=== PATIENT | female | born 1980 | race American Indian/Alaskan Native ===

== ENCOUNTER 2023-10-21 23:36 | Emergency (ER) | payer MEDICAID ==
[~2023-10-21] VITALS: Ht 160 cm; Wt 108.4 kg
[~2023-10-21 23:36] MED LIST: ACET-2119 PO; DIVA125T9 PO; GABA-338 PO
[2023-10-21 23:52] VITALS: BP 257/169; PULSE 106; RESP 20; TEMP 98.7; O2SAT 96
[2023-10-22 00:33] LABS: BASOPHILS % (AUTO) 0.4 % (0-1); EOSINOPHILS # (AUTO) 0.1 X10'3 (0-0.9); EOSINOPHILS % (AUTO) 0.9 % (0-6); HEMATOCRIT 47.6 % (35.0-45.0); HEMOGLOBIN 15.5 g/dl (12.0-16.0); LYMPHOCYTES # (AUTO) 2.6 X10'3 (1.1-4.8); LYMPHOCYTES % (AUTO) 29.6 % (21-51); MEAN CORPUSCULAR HEMOGLOBIN 30.2 PG (27.0-31.0); MEAN CORPUSCULAR HGB CONC 32.5 g/dL (33.0-36.5); MEAN CORPUSCULAR VOLUME 92.9 FL (78-98); MEAN PLATELET VOLUME 8.3 FL (7.4-10.4); MONOCYTES # (AUTO) 0.5 X10'3 (0-0.9); MONOCYTES % (AUTO) 6.1 % (2-12); NEUTROPHILS # (AUTO) 5.6 X10'3 (1.8-7.7); PLATELET COUNT 184 X10'3 (140-440); RED BLOOD COUNT 5.12 X10'6 (4.20-5.60); RED CELL DISTRIBUTION WIDTH 17.8 % (11.5-14.5); WHITE BLOOD COUNT 8.8 X10'3 (4.5-11.0)
[2023-10-22 00:41] LABS: ALANINE AMINOTRANSFERASE 61 U/L (12-78); ALBUMIN 3.1 G/DL (3.4-5.0); ALBUMIN/GLOBULIN RATIO 0.7 (1.1-1.5); ALKALINE PHOSPHATASE 351 IU/L (46-116); ANION GAP 9 (8-16); ASPARTATE AMINO TRANSFERASE 53 U/L (10-37); BLOOD UREA NITROGEN 22 MG/DL (7-18); BUN/CREATININE RATIO 18.8 (10.0-20.0); CALCIUM 9.2 MG/DL (8.5-10.1); CHLORIDE 104 MMOL/L (99-107); CREATININE 1.17 MG/DL (0.40-0.90); GLUCOSE 120 MG/DL (70-104); SODIUM 140 MMOL/L (135-145); TOTAL CARBON DIOXIDE 27.1 MMOL/L (24-32); TOTAL PROTEIN 7.5 G/DL (6.4-8.2); eCRCL 53 ML/MIN; eGFR 51 ML/MIN
[2023-10-22 00:49] LABS: PRO BRAIN NATRIURETIC PEPTIDE 1965 PG/ML (0-125)
[2023-10-22] MEDS ORDERED: potassium Cl 20 mEq SR tablet PO STA (01:47)
[2023-10-22] MEDS ORDERED: potassium CL 10mEq/100ml bag 100 ML IV SCH (01:50)
== END 2023-10-22 09:20 | disposition left against medical advice (07) ==
LOC: ER 23:36
DX: R06.02 Shortness of breath (principal); R60.0 Localized edema; Z53.21 Procedure and treatment not carried out due to patient leaving prior to being seen by health care provider
CPT/HCPCS: 36415; 71045; 80053; 83880; 84484; 85025; 93005; 99281

== ENCOUNTER 2023-10-22 22:48 | Inpatient (IN) | payer MEDICAID ==
[~2023-10-22] VITALS: Ht 160 cm; Wt 108.8 kg
[2023-10-22 23:20] LABS: HEMOGLOBIN 15.2 g/dl (12.0-16.0); PLATELET COUNT 169 X10'3 (140-440)
[2023-10-22 23:22] LABS: BASOPHILS % (AUTO) 0.5 % (0-1); EOSINOPHILS # (AUTO) 0.1 X10'3 (0-0.9); EOSINOPHILS % (AUTO) 0.7 % (0-6); HEMATOCRIT 45.7 % (35.0-45.0); LYMPHOCYTES # (AUTO) 2.2 X10'3 (1.1-4.8); MEAN CORPUSCULAR HEMOGLOBIN 30.5 PG (27.0-31.0); MEAN CORPUSCULAR HGB CONC 33.2 g/dL (33.0-36.5); MEAN PLATELET VOLUME 7.8 FL (7.4-10.4); MONOCYTES # (AUTO) 0.5 X10'3 (0-0.9); MONOCYTES % (AUTO) 6.4 % (2-12); NEUTROPHILS # (AUTO) 5.4 X10'3 (1.8-7.7); NEUTROPHILS % (AUTO) 65.4 % (42-75); RED BLOOD COUNT 4.97 X10'6 (4.20-5.60); RED CELL DISTRIBUTION WIDTH 17.8 % (11.5-14.5); WHITE BLOOD COUNT 8.2 X10'3 (4.5-11.0)
[2023-10-22 23:51] LABS: ALANINE AMINOTRANSFERASE 51 U/L (12-78); ALBUMIN 2.9 G/DL (3.4-5.0); ALBUMIN/GLOBULIN RATIO 0.7 (1.1-1.5); ALKALINE PHOSPHATASE 295 IU/L (46-116); ANION GAP 11 (8-16); ASPARTATE AMINO TRANSFERASE 49 U/L (10-37); BILIRUBIN,TOTAL 1.3 MG/DL (0.1-1.0); BLOOD UREA NITROGEN 20 MG/DL (7-18); BUN/CREATININE RATIO 20.2 (10.0-20.0); CALCIUM 8.7 MG/DL (8.5-10.1); CHLORIDE 105 MMOL/L (99-107); CREATININE 0.99 MG/DL (0.40-0.90); GLUCOSE 119 MG/DL (70-104); POTASSIUM 3.2 MMOL/L (3.5-5.1); SODIUM 141 MMOL/L (135-145); TOTAL CARBON DIOXIDE 25.4 MMOL/L (24-32); TOTAL PROTEIN 7.1 G/DL (6.4-8.2); eCRCL 62 ML/MIN; eGFR 62 ML/MIN
[2023-10-22] MEDS ORDERED: potassium Cl 20 mEq SR tablet PO STA (23:53)
[2023-10-22] MEDS ORDERED: furosemide 10 MG/1 ML 10ml inj IV ONE (23:55)
[2023-10-23 00:02] LABS: PRO BRAIN NATRIURETIC PEPTIDE 1598 PG/ML (0-125)
[2023-10-23] MEDS ORDERED: nitroGLYCERIN 1gm ointment UD TP ONE (00:15)
[2023-10-23] MEDS ORDERED: HYDROcodone/acetaminophen 5mg/325mg tablet PO PRN (00:20)
[2023-10-23] MEDS ORDERED: mag hydrox/Alum hydrox/simeth 30ml oral suspension PO PRN (00:20)
[2023-10-23] MEDS ORDERED: magnesium 4gm in 100ml NS 100 ML IV PRN (00:20)
[2023-10-23] MEDS ORDERED: potassium Cl 20 mEq SR tablet PO PRN ×2 (00:20)
[2023-10-23] MEDS ORDERED: potassium Cl 40MEQ/1/2NS 520ml 520 ML IV PRN (00:20)
[2023-10-23] MEDS ORDERED: magnesium hydroxide 30ml (MOM) UD suspension PO PRN (00:20)
[2023-10-23] MEDS ORDERED: ondansetron/PF 4mg/2ml inj IV PRN (00:20)
[2023-10-23] MEDS ORDERED: morphine 2 MG/ML inj. syringe IV PRN ×2 (00:20)
[2023-10-23] MEDS ORDERED: magnesium Cl slow-release 64mg tablet PO PRN (00:20)
[2023-10-23] MEDS ORDERED: magnesium 2GM in 50ml NS 50 ML IV PRN (00:20)
[2023-10-23] MEDS ORDERED: acetaminophen 325mg tablet PO PRN ×2 (00:20)
[2023-10-23] MEDS: sacubitril/valsartan 24mg-26mg tablet PO SCH ×3 (00:25→20:00)
[2023-10-23 01:40] LABS: URINE HCG NEGATIVE (NEG)
[2023-10-23 01:45] LABS: BILIRUBIN,URINE NEGATIVE (Neg); CLARITY,URINE CLEAR (Clear); COLOR,URINE YELLOW (Yellow); GLUCOSE, URINE NEGATIVE (Neg); KETONES,URINE NEGATIVE (Neg); LEUKOCYTE ESTERASE ,URINE NEGATIVE (Neg); NITRITES, URINE NEGATIVE (Neg); OCCULT BLOOD,URINE TRACE-INTACT (Neg); PH,URINE 6.5 (4.8-8.0); PROTEIN,URINE 100 mg/dl (Neg)
[2023-10-23 01:50] LABS: UA COLLECTION TYPE FOLEY CATH
[2023-10-23 01:56] LABS: MUCUS STRANDS MODERATE /LPF (Neg); SQUAMOUS EPITHELIAL CELL,UR FEW /LPF (FEW)
[2023-10-23 01:58] LABS: BACTERIA,URINE 1+ /HPF (Neg); HYALINE CASTS 0-3 /LPF (NEGATIVE); RBC,URINE 0-2 /HPF (0-2)
[2023-10-23] MEDS: furosemide inj 100 MG in normal saline 100ml IV soln 90 ML IV SCH ×2 (02:02→11:14)
[2023-10-23 03:20] LABS: MAGNESIUM 1.9 MG/DL (1.5-2.4); POTASSIUM 3.3 MMOL/L (3.5-5.1)
[2023-10-23 03:21] LABS: INR 1.1 INR; PROTHROMBIN TIME 11.5 SECONDS (9.0-12.0)
[2023-10-23] MEDS ORDERED: docusate sod 100mg capsule PO SCH (08:00)
[2023-10-23] MEDS: K and/or MAG REPLACEMENT MC SCH ×2 (08:00→20:00)
[2023-10-23] MEDS: divalproex sod 125mg tablet.DR PO SCH ×2 (12:34→20:00)
[2023-10-23] MEDS: furosemide 40mg/4ml inj IV SCH ×2 (12:34→21:00)
[2023-10-23] MEDS: gabapentin 300mg capsule PO SCH (16:00)
[2023-10-23 16:56] LABS: POTASSIUM 3.7 MMOL/L (3.5-5.1)
[2023-10-23 18:00] VITALS: BP 154/92; PULSE 103; RESP 21; TEMP 97.5; O2SAT 97
[2023-10-23] MEDS: enoxaparin 40mg/0.4ml syringe SQ SCH (20:00)
[2023-10-23 22:00] VITALS: BP 122/69; PULSE 99; RESP 15; TEMP 97.3; O2SAT 96
[2023-10-23] MEDS: HYDROcodone/acetaminophen 10/325mg tab PO PRN (22:08)
[2023-10-24] MEDS: gabapentin 300mg capsule PO SCH ×3 (00:31→16:15)
[2023-10-24 08:00] VITALS: RESP 17; O2SAT 95
[2023-10-24] MEDS: K and/or MAG REPLACEMENT MC SCH ×2 (08:00→20:00)
[2023-10-24] MEDS: divalproex sod 125mg tablet.DR PO SCH ×2 (08:12→22:08)
[2023-10-24] MEDS: furosemide 40mg/4ml inj IV SCH ×3 (08:12→21:27)
[2023-10-24] MEDS: sacubitril/valsartan 24mg-26mg tablet PO SCH ×2 (08:12→22:07)
[2023-10-24] MEDS: HYDROcodone/acetaminophen 10/325mg tab PO PRN ×2 (08:22→19:00)
[2023-10-24 09:06] LABS: BASOPHILS % (AUTO) 0.4 % (0-1); EOSINOPHILS # (AUTO) 0.2 X10'3 (0-0.9); EOSINOPHILS % (AUTO) 1.7 % (0-6); HEMATOCRIT 48.9 % (35.0-45.0); HEMOGLOBIN 15.3 g/dl (12.0-16.0); LYMPHOCYTES # (AUTO) 3.6 X10'3 (1.1-4.8); LYMPHOCYTES % (AUTO) 36.5 % (21-51); MEAN CORPUSCULAR HEMOGLOBIN 29.9 PG (27.0-31.0); MEAN CORPUSCULAR HGB CONC 31.3 g/dL (33.0-36.5); MEAN CORPUSCULAR VOLUME 95.6 FL (78-98); MEAN PLATELET VOLUME 8.3 FL (7.4-10.4); MONOCYTES % (AUTO) 10.4 % (2-12); NEUTROPHILS # (AUTO) 5.1 X10'3 (1.8-7.7); PLATELET COUNT 178 X10'3 (140-440); RED BLOOD COUNT 5.11 X10'6 (4.20-5.60); RED CELL DISTRIBUTION WIDTH 18.7 % (11.5-14.5)
[2023-10-24 10:13] LABS: ANISOCYTOSIS 2+; PLATELET ESTIMATE NORMAL
[2023-10-24 11:13] VITALS: BP 98/69; PULSE 91; RESP 17; TEMP 97.3; O2SAT 95
[2023-10-24 11:35] LABS: ALBUMIN 2.6 G/DL (3.4-5.0); ANION GAP 6 (8-16); BLOOD UREA NITROGEN 21 MG/DL (7-18); BUN/CREATININE RATIO 21.9 (10.0-20.0); CALCIUM 8.9 MG/DL (8.5-10.1); CHLORIDE 102 MMOL/L (99-107); CREATININE 0.96 MG/DL (0.40-0.90); GLUCOSE 110 MG/DL (70-104); MAGNESIUM 2.3 MG/DL (1.5-2.4); SODIUM 138 MMOL/L (135-145); TOTAL CARBON DIOXIDE 30.5 MMOL/L (24-32); eCRCL 64 ML/MIN; eGFR 64 ML/MIN
[2023-10-24 11:41] LABS: POTASSIUM 4.7 MMOL/L (3.5-5.1)
[2023-10-24 11:46] VITALS: BP 167/110; PULSE 88; RESP 24; TEMP 97.9; O2SAT 97
[2023-10-24] MEDS: EMPAGLIFLOZIN 10 MG TABLET PO SCH (12:04)
[2023-10-24 15:59] VITALS: BP 126/82; PULSE 91; RESP 18; TEMP 97.5; O2SAT 96
[2023-10-24 18:00] VITALS: BP 130/91; PULSE 97; RESP 16; TEMP 97.7; O2SAT 93
[2023-10-24] MEDS ORDERED: LORazepam 1 MG tablet PO PRN (18:55)
[2023-10-24] MEDS ORDERED: haloperidol 5mg tablet PO PRN (19:20)
[2023-10-24] MEDS ORDERED: LORazepam 2 mg/ml vial IV PRN (19:20)
[2023-10-24] MEDS ORDERED: haloperidol lactate 5mg/ml inj IM PRN (19:20)
[2023-10-24 19:50] LABS: CHOL/HDL RATIO 3.4 (0.00-4.99); CHOLESTEROL 133 MG/DL (0-200); HDL CHOLESTEROL 39 MG/DL (35-60); LDL CHOLESTEROL 70 MG/DL (50-100); TRIGLYCERIDES 111 MG/DL (20-135)
[2023-10-24] MEDS: enoxaparin 40mg/0.4ml syringe SQ SCH (20:42)
[2023-10-24] MEDS: Melatonin 3mg tablet PO SCH (21:28)
[2023-10-24 22:00] VITALS: BP 127/76; PULSE 78; RESP 18; TEMP 98.3; O2SAT 95
[2023-10-25] VITALS (9 sets, daily range): BP systolic 104–160; BP diastolic 53–95; PULSE 72–99; RESP 16–25; TEMP 97–98; O2SAT 91–97
[2023-10-25] MEDS: gabapentin 300mg capsule PO SCH ×3 (00:21→16:00)
[2023-10-25 03:30] LABS: URINE AMPHETAMINE SCREEN POSITIVE (Neg); URINE BARBITUATE SCREEN NEGATIVE (Neg); URINE BENZODIAZEPINES SCREEN NEGATIVE (Neg); URINE CANNABINOID SCREEN NEGATIVE (Neg); URINE COCAINE SCREEN NEGATIVE (Neg); URINE METHADONE SCREEN NEGATIVE (Neg); URINE OPIATE SCREEN POSITIVE (Neg); URINE PHENCYCLIDINE SCREEN NEGATIVE (Neg)
[2023-10-25] MEDS: K and/or MAG REPLACEMENT MC SCH ×2 (08:00→19:48)
[2023-10-25 08:20] LABS: PROTHROMBIN TIME 11.1 SECONDS (9.0-12.0)
[2023-10-25 08:31] LABS: BASOPHILS % (AUTO) 0.4 % (0-1); EOSINOPHILS # (AUTO) 0.1 X10'3 (0-0.9); EOSINOPHILS % (AUTO) 1.4 % (0-6); HEMATOCRIT 47.3 % (35.0-45.0); HEMOGLOBIN 15.4 g/dl (12.0-16.0); LYMPHOCYTES # (AUTO) 2.8 X10'3 (1.1-4.8); LYMPHOCYTES % (AUTO) 34.9 % (21-51); MEAN CORPUSCULAR HEMOGLOBIN 30.5 PG (27.0-31.0); MEAN CORPUSCULAR HGB CONC 32.5 g/dL (33.0-36.5); MEAN PLATELET VOLUME 8.4 FL (7.4-10.4); MONOCYTES # (AUTO) 0.6 X10'3 (0-0.9); MONOCYTES % (AUTO) 7.2 % (2-12); NEUTROPHILS # (AUTO) 4.6 X10'3 (1.8-7.7); NEUTROPHILS % (AUTO) 56.1 % (42-75); PLATELET COUNT 190 X10'3 (140-440); RED BLOOD COUNT 5.03 X10'6 (4.20-5.60); RED CELL DISTRIBUTION WIDTH 18.2 % (11.5-14.5); WHITE BLOOD COUNT 8.2 X10'3 (4.5-11.0)
[2023-10-25] MEDS: atorvastatin 20mg tablet PO SCH (08:33)
[2023-10-25] MEDS: divalproex sod 125mg tablet.DR PO SCH ×2 (08:33→19:42)
[2023-10-25] MEDS: EMPAGLIFLOZIN 10 MG TABLET PO SCH (08:33)
[2023-10-25] MEDS: spironolactone 25 MG tablet PO SCH (08:34)
[2023-10-25] MEDS: furosemide 40mg/4ml inj IV SCH (08:34)
[2023-10-25] MEDS: sacubitril/valsartan 24mg-26mg tablet PO SCH ×2 (08:34→19:42)
[2023-10-25 10:27] LABS: HEMOGLOBIN A1C 6.4 % (4.5-6.2)
[2023-10-25 10:28] LABS: ALANINE AMINOTRANSFERASE 37 U/L (12-78); ALBUMIN 2.5 G/DL (3.4-5.0); ALBUMIN/GLOBULIN RATIO 0.6 (1.1-1.5); ALKALINE PHOSPHATASE 272 IU/L (46-116); AMYLASE 41 U/L (25-115); ANION GAP 7 (8-16); ASPARTATE AMINO TRANSFERASE 33 U/L (10-37); BILIRUBIN,TOTAL 0.9 MG/DL (0.1-1.0); BLOOD UREA NITROGEN 21 MG/DL (7-18); BUN/CREATININE RATIO 20.2 (10.0-20.0); CALCIUM 8.7 MG/DL (8.5-10.1); CHLORIDE 104 MMOL/L (99-107); CHOL/HDL RATIO 3.4 (0.00-4.99); CHOLESTEROL 131 MG/DL (0-200); CREATININE 1.04 MG/DL (0.40-0.90); GLUCOSE 104 MG/DL (70-104); HDL CHOLESTEROL 39 MG/DL (35-60); LDL CHOLESTEROL 73 MG/DL (50-100); LIPASE 21 U/L (16-77); MAGNESIUM 2.3 MG/DL (1.5-2.4); PHOSPHORUS 4.5 MG/DL (2.3-4.5); POTASSIUM 3.8 MMOL/L (3.5-5.1); SODIUM 141 MMOL/L (135-145); THYROID STIMULATING HORMONE 1.98 ulU/ml (0.34-4.50); TOTAL CARBON DIOXIDE 29.8 MMOL/L (24-32); TOTAL PROTEIN 6.6 G/DL (6.4-8.2); TRIGLYCERIDES 88 MG/DL (20-135); eCRCL 59 ML/MIN; eGFR 59 ML/MIN
[2023-10-25] MEDS: amLODIPine 5mg tablet PO SCH (10:37)
[2023-10-25 13:25] LABS: ABG HCO3 30.7 mmol/L (22.0-26.0); ABG OXYGEN SATURATION 93.3 % (94-97); ABG PCO2 (T) 42.7 mmHg (32.0-45.0); ABG PH (T) 7.472 (7.350-7.450); ABG PO2 (T) 64.2 mmHg (75.0-100.0); ALLEN'S TEST POSITIVE; FCOHb 1.1 % (0.0-3.9); FHHb 6.6 % (0.0-5.0); FMetHb 0.1 % (0.0-1.5); FO2Hb 92.2 % (94-97); MODE ROOM AIR; PATIENT TEMPERATURE 36.2; TOTAL HEMOGLOBIN 17.1 G/dl (12.0-16.0)
[2023-10-25] MEDS: furosemide inj 100 MG in normal saline 100ml IV soln 90 ML IV SCH ×2 (13:33→22:04)
[2023-10-25] MEDS: enoxaparin 40mg/0.4ml syringe SQ SCH (19:42)
[2023-10-25] MEDS: Melatonin 3mg tablet PO SCH (19:47)
[2023-10-26] VITALS (11 sets, daily range): BP systolic 82–138; BP diastolic 59–108; PULSE 90–95; RESP 15–21; TEMP 96.7–98.6; O2SAT 89–97
[2023-10-26] MEDS: K and/or MAG REPLACEMENT MC SCH ×2 (08:00→20:00)
[2023-10-26 08:06] LABS: ALANINE AMINOTRANSFERASE 32 U/L (12-78); ALBUMIN 2.4 G/DL (3.4-5.0); ALBUMIN/GLOBULIN RATIO 0.6 (1.1-1.5); ALKALINE PHOSPHATASE 242 IU/L (46-116); AMYLASE 40 U/L (25-115); ANION GAP 5 (8-16); ASPARTATE AMINO TRANSFERASE 35 U/L (10-37); BILIRUBIN,TOTAL 1.1 MG/DL (0.1-1.0); BLOOD UREA NITROGEN 15 MG/DL (7-18); BUN/CREATININE RATIO 16.3 (10.0-20.0); CALCIUM 8.7 MG/DL (8.5-10.1); CHLORIDE 100 MMOL/L (99-107); CREATININE 0.92 MG/DL (0.40-0.90); GLUCOSE 126 MG/DL (70-104); LIPASE 17 U/L (16-77); MAGNESIUM 2.2 MG/DL (1.5-2.4); PHOSPHORUS 3.6 MG/DL (2.3-4.5); SODIUM 137 MMOL/L (135-145); TOTAL PROTEIN 6.6 G/DL (6.4-8.2); eCRCL 67 ML/MIN; eGFR 68 ML/MIN
[2023-10-26 08:08] LABS: POTASSIUM 3.9 MMOL/L (3.5-5.1)
[2023-10-26] MEDS: HYDROcodone/acetaminophen 10/325mg tab PO PRN (08:37)
[2023-10-26] MEDS: EMPAGLIFLOZIN 10 MG TABLET PO SCH (08:37)
[2023-10-26] MEDS: amLODIPine 5mg tablet PO SCH (08:37)
[2023-10-26] MEDS: atorvastatin 20mg tablet PO SCH (08:37)
[2023-10-26] MEDS: sacubitril/valsartan 24mg-26mg tablet PO SCH ×2 (08:37→20:46)
[2023-10-26] MEDS: divalproex sod 125mg tablet.DR PO SCH ×2 (08:38→20:47)
[2023-10-26] MEDS: spironolactone 25 MG tablet PO SCH (08:38)
[2023-10-26] MEDS: gabapentin 300mg capsule PO SCH ×3 (08:38→16:48)
[2023-10-26] MEDS: furosemide inj 100 MG in normal saline 100ml IV soln 90 ML IV SCH ×2 (08:45→22:56)
[2023-10-26 12:01] LABS: BASOPHILS % (AUTO) 0.4 % (0-1); EOSINOPHILS # (AUTO) 0.1 X10'3 (0-0.9); EOSINOPHILS % (AUTO) 1.3 % (0-6); HEMATOCRIT 52.7 % (35.0-45.0); LYMPHOCYTES # (AUTO) 2.6 X10'3 (1.1-4.8); LYMPHOCYTES % (AUTO) 30.9 % (21-51); MEAN CORPUSCULAR HGB CONC 32.3 g/dL (33.0-36.5); MEAN CORPUSCULAR VOLUME 92.8 FL (78-98); MEAN PLATELET VOLUME 8.4 FL (7.4-10.4); MONOCYTES # (AUTO) 0.7 X10'3 (0-0.9); MONOCYTES % (AUTO) 8.7 % (2-12); NEUTROPHILS % (AUTO) 58.7 % (42-75); PLATELET COUNT 237 X10'3 (140-440); RED BLOOD COUNT 5.67 X10'6 (4.20-5.60); RED CELL DISTRIBUTION WIDTH 18.3 % (11.5-14.5); WHITE BLOOD COUNT 8.6 X10'3 (4.5-11.0)
[2023-10-26 12:13] LABS: PROTHROMBIN TIME 11.1 SECONDS (9.0-12.0)
[2023-10-26] MEDS ORDERED: LORazepam 2 mg/ml vial IV PRN (19:50)
[2023-10-26 20:15] LABS: BASOPHILS % (AUTO) 0.3 % (0-1); EOSINOPHILS # (AUTO) 0.1 X10'3 (0-0.9); EOSINOPHILS % (AUTO) 1.5 % (0-6); HEMOGLOBIN 15.6 g/dl (12.0-16.0); LYMPHOCYTES # (AUTO) 2.8 X10'3 (1.1-4.8); LYMPHOCYTES % (AUTO) 33.7 % (21-51); MEAN CORPUSCULAR HEMOGLOBIN 30.4 PG (27.0-31.0); MEAN CORPUSCULAR HGB CONC 32.5 g/dL (33.0-36.5); MEAN CORPUSCULAR VOLUME 93.5 FL (78-98); MEAN PLATELET VOLUME 8.1 FL (7.4-10.4); MONOCYTES # (AUTO) 0.7 X10'3 (0-0.9); MONOCYTES % (AUTO) 8.4 % (2-12); NEUTROPHILS # (AUTO) 4.7 X10'3 (1.8-7.7); NEUTROPHILS % (AUTO) 56.1 % (42-75); PLATELET COUNT 220 X10'3 (140-440); RED BLOOD COUNT 5.13 X10'6 (4.20-5.60); RED CELL DISTRIBUTION WIDTH 18.3 % (11.5-14.5); WHITE BLOOD COUNT 8.4 X10'3 (4.5-11.0)
[2023-10-26 20:23] LABS: ANION GAP 7 (8-16); BLOOD UREA NITROGEN 20 MG/DL (7-18); BUN/CREATININE RATIO 14.6 (10.0-20.0); CALCIUM 9.1 MG/DL (8.5-10.1); CHLORIDE 100 MMOL/L (99-107); CREATININE 1.37 MG/DL (0.40-0.90); GLUCOSE 99 MG/DL (70-104); SODIUM 142 MMOL/L (135-145); TOTAL CARBON DIOXIDE 35.3 MMOL/L (24-32); eCRCL 45 ML/MIN; eGFR 43 ML/MIN
[2023-10-26 20:24] LABS: ALANINE AMINOTRANSFERASE 45 U/L (12-78); ALBUMIN 2.6 G/DL (3.4-5.0); ALBUMIN/GLOBULIN RATIO 0.6 (1.1-1.5); ALKALINE PHOSPHATASE 280 IU/L (46-116); APTT 25 SECONDS (22-32); ASPARTATE AMINO TRANSFERASE 57 U/L (10-37); BILIRUBIN,TOTAL 0.9 MG/DL (0.1-1.0); INR 1.1 INR; PROTHROMBIN TIME 11.4 SECONDS (9.0-12.0); TOTAL PROTEIN 6.9 G/DL (6.4-8.2)
[2023-10-26] MEDS: thiamine 100mg/ml 2ml inj. IV SCH (20:44)
[2023-10-26] MEDS: Melatonin 3mg tablet PO SCH (20:45)
[2023-10-26] MEDS: enoxaparin 40mg/0.4ml syringe SQ SCH (20:46)
[2023-10-27 02:00] VITALS: BP 105/64; PULSE 89; RESP 22; TEMP 96.7; O2SAT 92
[2023-10-27 07:27] VITALS: BP 127/97; PULSE 97; RESP 21; TEMP 98; O2SAT 95
[2023-10-27 07:55] LABS: BASOPHILS % (AUTO) 0.3 % (0-1); EOSINOPHILS # (AUTO) 0.1 X10'3 (0-0.9); EOSINOPHILS % (AUTO) 1.1 % (0-6); HEMATOCRIT 51.6 % (35.0-45.0); HEMOGLOBIN 16.8 g/dl (12.0-16.0); LYMPHOCYTES # (AUTO) 2.7 X10'3 (1.1-4.8); LYMPHOCYTES % (AUTO) 32.5 % (21-51); MEAN CORPUSCULAR HEMOGLOBIN 30.1 PG (27.0-31.0); MEAN CORPUSCULAR HGB CONC 32.5 g/dL (33.0-36.5); MEAN CORPUSCULAR VOLUME 92.7 FL (78-98); MEAN PLATELET VOLUME 8.5 FL (7.4-10.4); MONOCYTES # (AUTO) 0.8 X10'3 (0-0.9); MONOCYTES % (AUTO) 9.4 % (2-12); NEUTROPHILS # (AUTO) 4.7 X10'3 (1.8-7.7); NEUTROPHILS % (AUTO) 56.7 % (42-75); PLATELET COUNT 218 X10'3 (140-440); RED BLOOD COUNT 5.57 X10'6 (4.20-5.60); RED CELL DISTRIBUTION WIDTH 17.9 % (11.5-14.5); WHITE BLOOD COUNT 8.2 X10'3 (4.5-11.0)
[2023-10-27] MEDS ORDERED: multivitamins, therapeutics tablet PO SCH (08:00)
[2023-10-27] MEDS: K and/or MAG REPLACEMENT MC SCH (08:00)
[2023-10-27] MEDS ORDERED: folic acid 1mg/0.2ml inj IV SCH (08:00)
[2023-10-27 08:02] LABS: ALANINE AMINOTRANSFERASE 51 U/L (12-78); ALBUMIN 2.7 G/DL (3.4-5.0); ALBUMIN/GLOBULIN RATIO 0.6 (1.1-1.5); ALKALINE PHOSPHATASE 282 IU/L (46-116); AMYLASE 46 U/L (25-115); ANION GAP 7 (8-16); ASPARTATE AMINO TRANSFERASE 55 U/L (10-37); BILIRUBIN,TOTAL 1.1 MG/DL (0.1-1.0); BLOOD UREA NITROGEN 20 MG/DL (7-18); BUN/CREATININE RATIO 21.7 (10.0-20.0); CALCIUM 9.1 MG/DL (8.5-10.1); CHLORIDE 100 MMOL/L (99-107); CREATININE 0.92 MG/DL (0.40-0.90); GLUCOSE 119 MG/DL (70-104); LIPASE 20 U/L (16-77); MAGNESIUM 2.5 MG/DL (1.5-2.4); PHOSPHORUS 4.6 MG/DL (2.3-4.5); POTASSIUM 3.8 MMOL/L (3.5-5.1); SODIUM 139 MMOL/L (135-145); TOTAL PROTEIN 7.3 G/DL (6.4-8.2); eCRCL 67 ML/MIN; eGFR 68 ML/MIN
[2023-10-27] MEDS: gabapentin 300mg capsule PO SCH ×2 (08:06)
[2023-10-27] MEDS: atorvastatin 20mg tablet PO SCH (08:06)
[2023-10-27] MEDS: amLODIPine 5mg tablet PO SCH (08:06)
[2023-10-27] MEDS: thiamine 100mg/ml 2ml inj. IV SCH (08:06)
[2023-10-27] MEDS: EMPAGLIFLOZIN 10 MG TABLET PO SCH (08:07)
[2023-10-27] MEDS: sacubitril/valsartan 24mg-26mg tablet PO SCH (08:07)
[2023-10-27] MEDS: divalproex sod 125mg tablet.DR PO SCH (08:07)
[2023-10-27] MEDS: spironolactone 25 MG tablet PO SCH (08:07)
[2023-10-27] MEDS: furosemide inj 100 MG in normal saline 100ml IV soln 90 ML IV SCH (08:22)
[2023-10-27 08:30] LABS: PROTHROMBIN TIME 11.1 SECONDS (9.0-12.0)
[2023-10-27] MEDS ORDERED: ATOR20TA66 PO (10:30)
[2023-10-27] MEDS ORDERED: NOR5T PO (10:30)
[2023-10-27] MEDS ORDERED: MULT-25 PO (10:30)
[2023-10-27] MEDS ORDERED: EMPA10TA PO (10:30)
[2023-10-27] MEDS ORDERED: SULF1TAB48 PO (10:30)
[2023-10-27] MEDS ORDERED: FURO80TA3 PO (10:30)
[2023-10-27 11:05] VITALS: BP 113/80; PULSE 95; RESP 20; TEMP 97.8; O2SAT 95
[2023-10-27] MEDS ORDERED: SPIR25TA PO (13:05)
[2023-10-27] MEDS ORDERED: SACU1TAB PO (13:05)
== END 2023-10-27 15:35 | disposition home or self-care (01) | DRG 199 ==
LOC: ER 22:48 → ED HOLD 10-23 00:22 → PCU 3S 10-23 16:55
PROVIDERS: ADMIT Internal Medicine; ATTEND Internal Medicine
DX: I16.0 Hypertensive urgency (principal); J96.01 Acute respiratory failure with hypoxia; I21.A1 Myocardial infarction type 2; I50.23 Acute on chronic systolic (congestive) heart failure; I11.0 Hypertensive heart disease with heart failure; E87.6 Hypokalemia; G43.909 Migraine, unspecified, not intractable, without status migrainosus; I25.10 Atherosclerotic heart disease of native coronary artery without angina pectoris; I07.1 Rheumatic tricuspid insufficiency; G47.33 Obstructive sleep apnea (adult) (pediatric); F15.10 Other stimulant abuse, uncomplicated; I42.7 Cardiomyopathy due to drug and external agent; N39.0 Urinary tract infection, site not specified; J44.9 Chronic obstructive pulmonary disease, unspecified; I27.20 Pulmonary hypertension, unspecified; I27.81 Cor pulmonale (chronic); F10.20 Alcohol dependence, uncomplicated; E66.9 Obesity, unspecified; Z68.41 Body mass index [BMI] 40.0-44.9, adult; Z88.0 Allergy status to penicillin; Z88.6 Allergy status to analgesic agent; Z88.5 Allergy status to narcotic agent; Z88.8 Allergy status to other drugs, medicaments and biological substances; I25.2 Old myocardial infarction; Z98.891 History of uterine scar from previous surgery; Z79.899 Other long term (current) drug therapy; Z83.3 Family history of diabetes mellitus; Z59.00 Homelessness unspecified
CPT/HCPCS: 36415; 36600; 70450; 71045; 80048; 80053; 80061; 80305; 81001; 81025; 82150; 82803; 82948; 83036; 83605; 83690; 83735; 83880; 84100; 84132; 84145; 84439; 84443; 84484; 85008; 85018; 85025; 85610; 85730; 86885; 86900; 86901; 87077; 87088; 87186; 93005; 93306; 94760; 97161; 97530; 99285; A4314; A4615; A5200; A6250; A6449; G0378; J1650; J1940; J2060; J3411; J3490; J7040

== ENCOUNTER 2023-12-29 12:26 | Inpatient (IN) | payer MEDICAID ==
[~2023-12-29] VITALS: Ht 162.6 cm; Wt 112.4 kg
[~2023-12-29 12:26] MED LIST changes: +ATOR20TA66 PO; +EMPA10TA PO; +FURO80TA3 PO; +MULT-25 PO; +NOR5T PO; +SACU1TAB PO; +SPIR25TA PO
[2023-12-29 13:22] LABS: BASOPHILS % (AUTO) 0.6 % (0-1); EOSINOPHILS # (AUTO) 0.1 X10'3 (0-0.9); EOSINOPHILS % (AUTO) 0.7 % (0-6); HEMATOCRIT 50.8 % (35.0-45.0); HEMOGLOBIN 16.7 g/dl (12.0-16.0); LYMPHOCYTES # (AUTO) 2.4 X10'3 (1.1-4.8); LYMPHOCYTES % (AUTO) 29.2 % (21-51); MEAN CORPUSCULAR HEMOGLOBIN 30.8 PG (27.0-31.0); MEAN CORPUSCULAR HGB CONC 32.8 g/dL (33.0-36.5); MEAN CORPUSCULAR VOLUME 93.8 FL (78-98); MEAN PLATELET VOLUME 8.7 FL (7.4-10.4); MONOCYTES # (AUTO) 0.6 X10'3 (0-0.9); MONOCYTES % (AUTO) 7.3 % (2-12); NEUTROPHILS # (AUTO) 5.2 X10'3 (1.8-7.7); NEUTROPHILS % (AUTO) 62.2 % (42-75); PLATELET COUNT 127 X10'3 (140-440); RED BLOOD COUNT 5.41 X10'6 (4.20-5.60); RED CELL DISTRIBUTION WIDTH 16.7 % (11.5-14.5); WHITE BLOOD COUNT 8.3 X10'3 (4.5-11.0)
[2023-12-29 13:36] LABS: ALBUMIN 2.8 G/DL (3.4-5.0); ANION GAP 14 (8-16); BLOOD UREA NITROGEN 15 MG/DL (7-18); BUN/CREATININE RATIO 13.3 (10.0-20.0); CALCIUM 8.8 MG/DL (8.5-10.1); CHLORIDE 104 MMOL/L (99-107); CREATININE 1.13 MG/DL (0.40-0.90); GLUCOSE 159 MG/DL (70-104); POTASSIUM 3.1 MMOL/L (3.5-5.1); SODIUM 141 MMOL/L (135-145); eCRCL 57 ML/MIN; eGFR 53 ML/MIN
[2023-12-29] MEDS: LORazepam 2 mg/ml vial IV ONE (13:47)
[2023-12-29] MEDS: nitroGLYCERIN 1gm ointment UD TP ONE (13:47)
[2023-12-29 13:59] LABS: LIPASE 20 U/L (16-77); MAGNESIUM 1.8 MG/DL (1.5-2.4)
[2023-12-29 14:01] LABS: PRO BRAIN NATRIURETIC PEPTIDE 2239 PG/ML (0-125)
[2023-12-29 14:10] LABS: APTT 26 SECONDS (22-32); INR 1.2 INR; PROTHROMBIN TIME 12.5 SECONDS (9.0-12.0)
[2023-12-29] MEDS: hydrALAZINE 20mg/ml inj. IV ONE (15:46)
[2023-12-29] MEDS: furosemide 10 MG/1 ML 10ml inj IV ONE (15:47)
[2023-12-29] MEDS: POTASSIUM BICARB 20meq eff tab 20 MEQ TABLET.EFF PO ONE (15:47)
[2023-12-29 16:39] LABS: BILIRUBIN,URINE NEGATIVE (Neg); CLARITY,URINE SLIGHTLY CLOUDY (Clear); COLOR,URINE YELLOW (Yellow); GLUCOSE, URINE NEGATIVE (Neg); KETONES,URINE NEGATIVE (Neg); LEUKOCYTE ESTERASE ,URINE NEGATIVE (Neg); NITRITES, URINE NEGATIVE (Neg); OCCULT BLOOD,URINE NEGATIVE (Neg); PROTEIN,URINE 100 mg/dl (Neg); UROBILINOGEN,URINE 0.2 E.U/dL (0.2-1.0)
[2023-12-29 16:40] LABS: URINE HCG NEGATIVE (NEG)
[2023-12-29 16:52] LABS: UA COLLECTION TYPE OTHER
[2023-12-29 16:58] LABS: BACTERIA,URINE 1+ /HPF (Neg); RBC,URINE NONE SEEN /HPF (0-2); SQUAMOUS EPITHELIAL CELL,UR FEW /LPF (FEW); WBC,URINE 0-4 /HPF (0-4)
[2023-12-29] MEDS ORDERED: morphine 2 MG/ML inj. syringe IV PRN (17:10)
[2023-12-29] MEDS ORDERED: acetaminophen 325mg tablet PO PRN ×2 (17:10)
[2023-12-29] MEDS ORDERED: HYDROcodone/acetaminophen 5mg/325mg tablet PO PRN (17:10)
[2023-12-29] MEDS ORDERED: mag hydrox/Alum hydrox/simeth 30ml oral suspension PO PRN (17:10)
[2023-12-29] MEDS: cefepime 2g/NS 100ml ADVANTAGE 100 ML IV ONE (17:15)
[2023-12-29] MEDS: vancomycin inj 1,750 MG in normal saline 500ml IV soln 350 ML IV ONE (17:15)
[2023-12-29 17:41] LABS: LACTIC SEPSIS 2.6 MMOL/L (0.4-2.0)
[2023-12-29] MEDS ORDERED: iohexol 350MG/ML 100ml bottle IV ONE (18:42)
[2023-12-29] MEDS: docusate sod 100mg capsule PO SCH (20:00)
[2023-12-29] MEDS: furosemide 10 MG/1 ML 10ml inj IV SCH (21:23)
[2023-12-29 22:52] VITALS: BP_SYST 118; BP_SYST 134; BP_DIAS 81; BP_DIAS 96; PULSE 109; PULSE 126; RESP 21; RESP 28; TEMP 97.2; TEMP 97.8; O2SAT 93; O2SAT 96
[2023-12-29 23:00] VITALS: RESP 21; O2SAT 96
[2023-12-30] VITALS (8 sets, daily range): BP systolic 103–158; BP diastolic 55–108; PULSE 109–119; RESP 20–33; TEMP 97.3–98.7; O2SAT 90–97
[2023-12-30 08:40] LABS: BASOPHILS % (AUTO) 0.2 % (0-1); EOSINOPHILS % (AUTO) 0 % (0-6); HEMATOCRIT 46.7 % (35.0-45.0); HEMOGLOBIN 15.6 g/dl (12.0-16.0); LYMPHOCYTES # (AUTO) 2.5 X10'3 (1.1-4.8); LYMPHOCYTES % (AUTO) 29.1 % (21-51); MEAN CORPUSCULAR HEMOGLOBIN 31.2 PG (27.0-31.0); MEAN CORPUSCULAR HGB CONC 33.3 g/dL (33.0-36.5); MEAN CORPUSCULAR VOLUME 93.7 FL (78-98); MEAN PLATELET VOLUME 8.3 FL (7.4-10.4); MONOCYTES # (AUTO) 0.7 X10'3 (0-0.9); MONOCYTES % (AUTO) 7.5 % (2-12); NEUTROPHILS # (AUTO) 5.5 X10'3 (1.8-7.7); NEUTROPHILS % (AUTO) 63.2 % (42-75); PLATELET COUNT 108 X10'3 (140-440); RED BLOOD COUNT 4.99 X10'6 (4.20-5.60); RED CELL DISTRIBUTION WIDTH 16.6 % (11.5-14.5); WHITE BLOOD COUNT 8.7 X10'3 (4.5-11.0)
[2023-12-30 08:56] LABS: ALBUMIN 2.4 G/DL (3.4-5.0); ANION GAP 15 (8-16); BLOOD UREA NITROGEN 21 MG/DL (7-18); BUN/CREATININE RATIO 16.9 (10.0-20.0); CALCIUM 8.3 MG/DL (8.5-10.1); CHLORIDE 99 MMOL/L (99-107); CREATININE 1.24 MG/DL (0.40-0.90); GLUCOSE 115 MG/DL (70-104); SODIUM 131 MMOL/L (135-145); TOTAL CARBON DIOXIDE 17.5 MMOL/L (24-32); eCRCL 52 ML/MIN; eGFR 48 ML/MIN
[2023-12-30] MEDS: enoxaparin 40mg/0.4ml syringe SUBCUT SCH (09:12)
[2023-12-30] MEDS ORDERED: furosemide inj 1,000 MG in normal saline 250ml IV soln 150 ML IV SCH (10:00)
[2023-12-30] MEDS: HYDROcodone/acetaminophen 10/325mg tab PO PRN (16:39)
[2023-12-30] MEDS: furosemide inj 100 MG in normal saline 100ml IV soln 90 ML IV SCH (16:39)
[2023-12-30 23:55] LABS: URINE AMPHETAMINE SCREEN POSITIVE (Neg); URINE BARBITUATE SCREEN NEGATIVE (Neg); URINE BENZODIAZEPINES SCREEN NEGATIVE (Neg); URINE CANNABINOID SCREEN NEGATIVE (Neg); URINE COCAINE SCREEN NEGATIVE (Neg); URINE METHADONE SCREEN NEGATIVE (Neg); URINE OPIATE SCREEN POSITIVE (Neg); URINE PHENCYCLIDINE SCREEN NEGATIVE (Neg)
[2023-12-31] VITALS (22 sets, daily range): BP systolic 132–231; BP diastolic 87–132; PULSE 90–119; RESP 11–26; TEMP 97.7–99; O2SAT 92–97
[2023-12-31 01:44] LABS: ALBUMIN 2.5 G/DL (3.4-5.0); ANION GAP 13 (8-16); BLOOD UREA NITROGEN 29 MG/DL (7-18); BUN/CREATININE RATIO 19.5 (10.0-20.0); CALCIUM 8.5 MG/DL (8.5-10.1); CHLORIDE 101 MMOL/L (99-107); CREATININE 1.49 MG/DL (0.40-0.90); GLUCOSE 103 MG/DL (70-104); MAGNESIUM 1.8 MG/DL (1.5-2.4); PHOSPHORUS 4.5 MG/DL (2.3-4.5); POTASSIUM 3.4 MMOL/L (3.5-5.1); SODIUM 137 MMOL/L (135-145); TOTAL CARBON DIOXIDE 23.2 MMOL/L (24-32); eCRCL 43 ML/MIN; eGFR 39 ML/MIN
[2023-12-31] MEDS ORDERED: magnesium 2GM in 50ml NS 50 ML IV PRN (03:15)
[2023-12-31] MEDS ORDERED: potassium Cl 40MEQ/1/2NS 520ml 520 ML IV PRN (03:15)
[2023-12-31] MEDS ORDERED: gabapentin 400mg capsule PO SCH (03:15)
[2023-12-31] MEDS ORDERED: magnesium Cl slow-release 64mg tablet PO PRN (03:15)
[2023-12-31] MEDS ORDERED: magnesium 4gm in 100ml NS 100 ML IV PRN (03:15)
[2023-12-31] MEDS ORDERED: potassium Cl 20 mEq SR tablet PO PRN (03:25)
[2023-12-31] MEDS: GABAPENTIN 300 MG/6 ML oral SOLUTION cup PO SCH (04:00)
[2023-12-31] MEDS: potassium Cl 20 mEq SR tablet PO PRN (04:37)
[2023-12-31] MEDS: gabapentin 300mg capsule PO ONE (04:37)
[2023-12-31] MEDS: K and/or MAG REPLACEMENT MC SCH (08:00)
[2023-12-31] MEDS: atorvastatin 20mg tablet PO SCH (08:05)
[2023-12-31 08:06] LABS: ALBUMIN 2.3 G/DL (3.4-5.0); ANION GAP 11 (8-16); BLOOD UREA NITROGEN 27 MG/DL (7-18); BUN/CREATININE RATIO 23.5 (10.0-20.0); CALCIUM 8.5 MG/DL (8.5-10.1); CHLORIDE 101 MMOL/L (99-107); CREATININE 1.15 MG/DL (0.40-0.90); GLUCOSE 116 MG/DL (70-104); MAGNESIUM 1.9 MG/DL (1.5-2.4); SODIUM 137 MMOL/L (135-145); TOTAL CARBON DIOXIDE 25.3 MMOL/L (24-32); eCRCL 56 ML/MIN; eGFR 52 ML/MIN
[2023-12-31] MEDS: EMPAGLIFLOZIN 10 MG TABLET PO SCH (08:06)
[2023-12-31 08:08] LABS: POTASSIUM 3.3 MMOL/L (3.5-5.1)
[2023-12-31 08:10] LABS: BASOPHILS % (AUTO) 0.3 % (0-1); EOSINOPHILS # (AUTO) 0.1 X10'3 (0-0.9); EOSINOPHILS % (AUTO) 1.2 % (0-6); HEMATOCRIT 50.1 % (35.0-45.0); HEMOGLOBIN 16.3 g/dl (12.0-16.0); LYMPHOCYTES # (AUTO) 3.4 X10'3 (1.1-4.8); LYMPHOCYTES % (AUTO) 31.8 % (21-51); MEAN CORPUSCULAR HEMOGLOBIN 30.7 PG (27.0-31.0); MEAN CORPUSCULAR HGB CONC 32.5 g/dL (33.0-36.5); MEAN CORPUSCULAR VOLUME 94.3 FL (78-98); MEAN PLATELET VOLUME 9.3 FL (7.4-10.4); MONOCYTES % (AUTO) 9.4 % (2-12); NEUTROPHILS # (AUTO) 6.1 X10'3 (1.8-7.7); NEUTROPHILS % (AUTO) 57.3 % (42-75); PLATELET COUNT 115 X10'3 (140-440); RED BLOOD COUNT 5.31 X10'6 (4.20-5.60); RED CELL DISTRIBUTION WIDTH 17.1 % (11.5-14.5); WHITE BLOOD COUNT 10.7 X10'3 (4.5-11.0)
[2023-12-31] MEDS: spironolactone 25 MG tablet PO SCH (08:32)
[2023-12-31] MEDS ORDERED: enoxaparin 100mg/ml syringe SUBCUT ONE (10:25)
[2023-12-31] MEDS: cloNIDine 0.1 mg tablet PO ONE (11:01)
[2023-12-31] MEDS: magnesium hydroxide 30ml (MOM) UD suspension PO PRN (11:01)
[2023-12-31] MEDS: morphine 2 MG/ML inj. syringe IV PRN (11:07)
[2023-12-31] MEDS: Permethrin 1% 59ml topical rinse TP ONE (12:10)
[2023-12-31 12:21] LABS: APTT 26 SECONDS (22-32); INR 1.3 INR
[2023-12-31 12:27] LABS: ALBUMIN 2.6 G/DL (3.4-5.0); ANION GAP 10 (8-16); BLOOD UREA NITROGEN 27 MG/DL (7-18); BUN/CREATININE RATIO 22.5 (10.0-20.0); CALCIUM 8.8 MG/DL (8.5-10.1); CHLORIDE 102 MMOL/L (99-107); GLUCOSE 107 MG/DL (70-104); PHOSPHORUS 3.3 MG/DL (2.3-4.5); POTASSIUM 3.5 MMOL/L (3.5-5.1); SODIUM 139 MMOL/L (135-145); eCRCL 53 ML/MIN; eGFR 50 ML/MIN
[2023-12-31] MEDS: LidoCAINE 2% Topical Jelly 11mL syringe (UROJET) TOP ONE (13:11)
[2023-12-31] MEDS: Permethrin Cream 60gm TP ONE (13:53)
[2023-12-31] MEDS: heparin 10,000 units/1 ML INJ IV ONE (15:58)
[2023-12-31] MEDS: heparin 25,000 UNIT/250ml bag 250 ML IV PRN (15:59)
[2023-12-31] MEDS: MESSAGE TO NURSING IV ONE (16:08)
[2023-12-31 17:27] LABS: ALBUMIN 2.6 G/DL (3.4-5.0); ANION GAP 6 (8-16); BLOOD UREA NITROGEN 25 MG/DL (7-18); BUN/CREATININE RATIO 20.2 (10.0-20.0); CALCIUM 8.5 MG/DL (8.5-10.1); CHLORIDE 100 MMOL/L (99-107); CREATININE 1.24 MG/DL (0.40-0.90); GLUCOSE 115 MG/DL (70-104); PHOSPHORUS 3.2 MG/DL (2.3-4.5); POTASSIUM 3.4 MMOL/L (3.5-5.1); SODIUM 138 MMOL/L (135-145); TOTAL CARBON DIOXIDE 32.4 MMOL/L (24-32); eCRCL 52 ML/MIN; eGFR 48 ML/MIN
[2023-12-31] MEDS: furosemide inj 1,000 MG in normal saline 250ml IV soln 150 ML IV SCH (17:37)
[2023-12-31] MEDS: amLODIPine 5mg tablet PO SCH (23:03)
[2023-12-31] MEDS: metoprolol succinate 25mg (24-HOUR) SR. Tablet PO SCH (23:03)
[2024-01-01] VITALS (11 sets, daily range): BP systolic 94–154; BP diastolic 68–114; PULSE 71–100; RESP 11–23; TEMP 96.9–97.8; O2SAT 93–97
[2024-01-01] MEDS: MESSAGE TO NURSING IV ONE ×2 (00:35→08:55)
[2024-01-01] MEDS: heparin 10,000 units/1 ML INJ IV PRN (01:28)
[2024-01-01 08:04] LABS: BASOPHILS % (AUTO) 0.4 % (0-1); EOSINOPHILS # (AUTO) 0.1 X10'3 (0-0.9); EOSINOPHILS % (AUTO) 1.4 % (0-6); HEMATOCRIT 48.4 % (35.0-45.0); HEMOGLOBIN 15.7 g/dl (12.0-16.0); LYMPHOCYTES # (AUTO) 2.8 X10'3 (1.1-4.8); LYMPHOCYTES % (AUTO) 34.6 % (21-51); MEAN CORPUSCULAR HEMOGLOBIN 30.7 PG (27.0-31.0); MEAN CORPUSCULAR HGB CONC 32.4 g/dL (33.0-36.5); MEAN CORPUSCULAR VOLUME 94.6 FL (78-98); MEAN PLATELET VOLUME 8.7 FL (7.4-10.4); MONOCYTES # (AUTO) 0.8 X10'3 (0-0.9); MONOCYTES % (AUTO) 9.6 % (2-12); NEUTROPHILS # (AUTO) 4.4 X10'3 (1.8-7.7); PLATELET COUNT 105 X10'3 (140-440); RED BLOOD COUNT 5.12 X10'6 (4.20-5.60); RED CELL DISTRIBUTION WIDTH 16.8 % (11.5-14.5); WHITE BLOOD COUNT 8.2 X10'3 (4.5-11.0)
[2024-01-01 08:17] LABS: ALANINE AMINOTRANSFERASE 42 U/L (12-78); ALBUMIN 2.2 G/DL (3.4-5.0); ALBUMIN/GLOBULIN RATIO 0.5 (1.1-1.5); ALKALINE PHOSPHATASE 208 IU/L (46-116); ANION GAP 8 (8-16); ASPARTATE AMINO TRANSFERASE 64 U/L (10-37); BILIRUBIN,TOTAL 1.7 MG/DL (0.1-1.0); BLOOD UREA NITROGEN 22 MG/DL (7-18); BUN/CREATININE RATIO 24.2 (10.0-20.0); CALCIUM 8.4 MG/DL (8.5-10.1); CHLORIDE 103 MMOL/L (99-107); CREATININE 0.91 MG/DL (0.40-0.90); GLUCOSE 94 MG/DL (70-104); POTASSIUM 3.6 MMOL/L (3.5-5.1); SODIUM 139 MMOL/L (135-145); TOTAL CARBON DIOXIDE 28.1 MMOL/L (24-32); TOTAL PROTEIN 6.4 G/DL (6.4-8.2); eCRCL 70 ML/MIN; eGFR 68 ML/MIN
[2024-01-01 08:20] LABS: ALBUMIN 2.3 G/DL (3.4-5.0); ANION GAP 8 (8-16); BLOOD UREA NITROGEN 22 MG/DL (7-18); BUN/CREATININE RATIO 24.7 (10.0-20.0); CALCIUM 8.4 MG/DL (8.5-10.1); CHLORIDE 103 MMOL/L (99-107); CREATININE 0.89 MG/DL (0.40-0.90); GLUCOSE 96 MG/DL (70-104); MAGNESIUM 2.1 MG/DL (1.5-2.4); POTASSIUM 3.7 MMOL/L (3.5-5.1); SODIUM 139 MMOL/L (135-145); TOTAL CARBON DIOXIDE 28.5 MMOL/L (24-32); eCRCL 72 ML/MIN; eGFR 70 ML/MIN
[2024-01-01] MEDS: aspirin 81mg tab.chew PO SCH (08:39)
[2024-01-01] MEDS: enoxaparin 100mg/ml syringe SUBCUT ONE (11:23)
[2024-01-01] MEDS: metoprolol succinate 25mg (24-HOUR) SR. Tablet PO ONE (11:28)
[2024-01-01 12:33] LABS: ALBUMIN 2.4 G/DL (3.4-5.0); ANION GAP 7 (8-16); BLOOD UREA NITROGEN 22 MG/DL (7-18); BUN/CREATININE RATIO 22.9 (10.0-20.0); CALCIUM 8.7 MG/DL (8.5-10.1); CHLORIDE 103 MMOL/L (99-107); CREATININE 0.96 MG/DL (0.40-0.90); GLUCOSE 95 MG/DL (70-104); MAGNESIUM 2.3 MG/DL (1.5-2.4); PHOSPHORUS 2.9 MG/DL (2.3-4.5); POTASSIUM 3.8 MMOL/L (3.5-5.1); SODIUM 139 MMOL/L (135-145); TOTAL CARBON DIOXIDE 29.3 MMOL/L (24-32); eCRCL 67 ML/MIN; eGFR 64 ML/MIN
[2024-01-01] MEDS: ondansetron/PF 4mg/2ml inj IV PRN (14:45)
[2024-01-01] MEDS: Melatonin 3mg tablet PO SCH (21:00)
[2024-01-01 22:27] LABS: ALBUMIN 2.3 G/DL (3.4-5.0); ANION GAP 13 (8-16); BLOOD UREA NITROGEN 29 MG/DL (7-18); BUN/CREATININE RATIO 23.6 (10.0-20.0); CALCIUM 8.3 MG/DL (8.5-10.1); CHLORIDE 102 MMOL/L (99-107); CREATININE 1.23 MG/DL (0.40-0.90); GLUCOSE 116 MG/DL (70-104); MAGNESIUM 2.2 MG/DL (1.5-2.4); PHOSPHORUS 4.5 MG/DL (2.3-4.5); POTASSIUM 4.6 MMOL/L (3.5-5.1); SODIUM 136 MMOL/L (135-145); TOTAL CARBON DIOXIDE 21.4 MMOL/L (24-32); eCRCL 52 ML/MIN; eGFR 48 ML/MIN
[2024-01-02] VITALS (9 sets, daily range): BP systolic 95–124; BP diastolic 60–105; PULSE 22–90; RESP 16–23; TEMP 97.6; O2SAT 96
[2024-01-02] MEDS: LORazepam 2 mg/ml vial IV PRN (05:53)
[2024-01-02] MEDS ORDERED: METO-395 PO (10:16)
[2024-01-02] MEDS ORDERED: EMPA10TA PO (10:16)
[2024-01-02] MEDS ORDERED: ASPI81TA53 PO (10:16)
[2024-01-02] MEDS ORDERED: NOR5T PO (10:16)
[2024-01-02] MEDS ORDERED: ATOR20TA66 PO (10:16)
[2024-01-02] MEDS ORDERED: SPIR25TA PO (10:16)
[2024-01-02] MEDS ORDERED: FURO40TA4 PO (10:16)
== END 2024-01-02 13:30 | disposition home or self-care (01) | DRG 194 ==
LOC: ER 12:26 → ED HOLD 17:13 → PCU 3S 22:45
PROVIDERS: ADMIT Internal Medicine; ATTEND Internal Medicine
PROC: B32T1ZZ Computerized Tomography (CT Scan) of Left Pulmonary Artery using Low Osmolar Contrast (ICD-10-PCS; principal; 2023-12-29)
PROC: B3201ZZ Computerized Tomography (CT Scan) of Thoracic Aorta using Low Osmolar Contrast (ICD-10-PCS; 2023-12-29)
PROC: B32S1ZZ Computerized Tomography (CT Scan) of Right Pulmonary Artery using Low Osmolar Contrast (ICD-10-PCS; 2023-12-29)
DX: I11.0 Hypertensive heart disease with heart failure (principal); J96.01 Acute respiratory failure with hypoxia; I21.4 Non-ST elevation (NSTEMI) myocardial infarction; I27.20 Pulmonary hypertension, unspecified; G92.8 Other toxic encephalopathy; I27.81 Cor pulmonale (chronic); E87.20 Acidosis, unspecified; D69.6 Thrombocytopenia, unspecified; N17.9 Acute kidney failure, unspecified; I16.1 Hypertensive emergency; I42.7 Cardiomyopathy due to drug and external agent; E87.6 Hypokalemia; G43.909 Migraine, unspecified, not intractable, without status migrainosus; F15.10 Other stimulant abuse, uncomplicated; I50.813 Acute on chronic right heart failure; I50.43 Acute on chronic combined systolic (congestive) and diastolic (congestive) heart failure; I07.1 Rheumatic tricuspid insufficiency; F10.10 Alcohol abuse, uncomplicated; E66.01 Morbid (severe) obesity due to excess calories; E78.5 Hyperlipidemia, unspecified; I25.10 Atherosclerotic heart disease of native coronary artery without angina pectoris; I25.2 Old myocardial infarction; Z88.5 Allergy status to narcotic agent; Z88.6 Allergy status to analgesic agent; Z88.0 Allergy status to penicillin; Z98.891 History of uterine scar from previous surgery; Z83.3 Family history of diabetes mellitus; Z68.41 Body mass index [BMI] 40.0-44.9, adult; Z79.899 Other long term (current) drug therapy; Z59.00 Homelessness unspecified; Z91.148 Patient's other noncompliance with medication regimen for other reason; Z71.51 Drug abuse counseling and surveillance of drug abuser; Z71.41 Alcohol abuse counseling and surveillance of alcoholic
CPT/HCPCS: 36415; 70450; 71045; 71275; 76700; 80048; 80053; 80069; 80305; 81001; 81025; 82140; 82800; 82948; 83605; 83690; 83735; 83880; 84132; 84145; 84484; 85025; 85610; 85730; 87040; 87081; 93005; 93308; 96374; 96375; 99285; A4314; A4615; A4620; A5200; A6258; A6402; G0378; J0360; J0692; J1644; J1650; J1940; J2060; J2270; J2405; J3490; J7050; Q9967

== ENCOUNTER 2024-06-12 13:07 | Inpatient (IN) | payer MEDICAID ==
[~2024-06-12] VITALS: Ht 160 cm; Wt 105.1 kg
[~2024-06-12 13:07] MED LIST changes: +ASPI81TA53 PO; -FURO80TA3 PO; +METO-395 PO; -SACU1TAB PO
[2024-06-12 13:54] LABS: BASOPHILS % (AUTO) 0.4 % (0-1); EOSINOPHILS # (AUTO) 0.1 X10'3 (0-0.9); HEMATOCRIT 49.7 % (35.0-45.0); LYMPHOCYTES # (AUTO) 1.9 X10'3 (1.1-4.8); LYMPHOCYTES % (AUTO) 26.3 % (21-51); MEAN CORPUSCULAR HEMOGLOBIN 32.2 PG (27.0-31.0); MEAN CORPUSCULAR HGB CONC 32.1 g/dL (33.0-36.5); MEAN CORPUSCULAR VOLUME 100.3 FL (78-98); MEAN PLATELET VOLUME 8.6 FL (7.4-10.4); MONOCYTES # (AUTO) 0.5 X10'3 (0-0.9); MONOCYTES % (AUTO) 6.9 % (2-12); NEUTROPHILS # (AUTO) 4.7 X10'3 (1.8-7.7); NEUTROPHILS % (AUTO) 65.4 % (42-75); PLATELET COUNT 123 X10'3 (140-440); RED BLOOD COUNT 4.95 X10'6 (4.20-5.60); RED CELL DISTRIBUTION WIDTH 18.6 % (11.5-14.5); WHITE BLOOD COUNT 7.1 X10'3 (4.5-11.0)
[2024-06-12 14:00] LABS: APTT 26 SECONDS (22-32); INR 1.4 INR; PROTHROMBIN TIME 14.2 SECONDS (9.0-12.0)
[2024-06-12 14:02] LABS: ALANINE AMINOTRANSFERASE 60 U/L (12-78); ALBUMIN 2.9 G/DL (3.4-5.0); ALKALINE PHOSPHATASE 299 IU/L (46-116); ANION GAP 11 (8-16); ASPARTATE AMINO TRANSFERASE 75 U/L (10-37); BILIRUBIN,TOTAL 3.5 MG/DL (0.1-1.0); BLOOD UREA NITROGEN 16 MG/DL (7-18); BUN/CREATININE RATIO 14.2 (10.0-20.0); CALCIUM 8.8 MG/DL (8.5-10.1); CHLORIDE 104 MMOL/L (99-107); CREATININE 1.13 MG/DL (0.40-0.90); GLUCOSE 150 MG/DL (70-104); SODIUM 142 MMOL/L (135-145); TOTAL CARBON DIOXIDE 27.1 MMOL/L (24-32); eCRCL 54 ML/MIN; eGFR 53 ML/MIN
[2024-06-12 14:13] LABS: PRO BRAIN NATRIURETIC PEPTIDE 2040 PG/ML (0-125); THYROID STIMULATING HORMONE 3.94 ulU/ml (0.34-4.50)
[2024-06-12 14:15] LABS: ALBUMIN/GLOBULIN RATIO 0.7 (1.1-1.5); TOTAL PROTEIN 7.2 G/DL (6.4-8.2)
[2024-06-12 14:29] LABS: HCG SERUM QL NEGATIVE
[2024-06-12 15:02] LABS: PLATELET ESTIMATE DECREASED
[2024-06-12 15:03] LABS: ANISOCYTOSIS 2+; LARGE PLATELETS FEW
[2024-06-12 15:48] LABS: MAGNESIUM 1.8 MG/DL (1.5-2.4); PRO BRAIN NATRIURETIC PEPTIDE 1716 PG/ML (0-125)
[2024-06-12 16:41] LABS: BILIRUBIN,URINE MODERATE (Neg); CLARITY,URINE CLOUDY (Clear); GLUCOSE, URINE NEGATIVE (Neg); KETONES,URINE NEGATIVE (Neg); LEUKOCYTE ESTERASE ,URINE TRACE (Neg); OCCULT BLOOD,URINE TRACE-INTACT (Neg); PROTEIN,URINE 100 mg/dl (Neg)
[2024-06-12] MEDS: POTASSIUM CHLORIDE 20 MEQ/15 ML oral solution PO SCH (16:42)
[2024-06-12] MEDS: potassium CL 10mEq/100ml bag 100 ML IV SCH (16:42)
[2024-06-12] MEDS: furosemide 10 MG/1 ML 10ml inj IV ONE (16:42)
[2024-06-12 16:48] LABS: COLOR,URINE DARK YELLOW (Yellow); UA COLLECTION TYPE CLN CATCH MIDSTREAM
[2024-06-12 16:49] LABS: NITRITES, URINE NEGATIVE (Neg); URINE AMPHETAMINE SCREEN POSITIVE (Neg); URINE BARBITUATE SCREEN NEGATIVE (Neg); URINE BENZODIAZEPINES SCREEN NEGATIVE (Neg); URINE CANNABINOID SCREEN NEGATIVE (Neg); URINE COCAINE SCREEN NEGATIVE (Neg); URINE METHADONE SCREEN NEGATIVE (Neg); URINE OPIATE SCREEN NEGATIVE (Neg); URINE PHENCYCLIDINE SCREEN NEGATIVE (Neg)
[2024-06-12 16:55] LABS: BACTERIA,URINE 4+ /HPF (Neg); FINE GRANULAR CAST 0-3 /LPF (NEGATIVE); MUCUS STRANDS FEW /LPF (Neg); RBC,URINE 0-2 /HPF (0-2); RENAL CELLS, URINE MODERATE /HPF; SQUAMOUS EPITHELIAL CELL,UR MANY /LPF (FEW); TRANSITIONAL EPI CELLS,URINE FEW /HPF
[2024-06-12 16:56] LABS: BETA HCG,QUANTITATIVE < 1.0 mIU/ml
[2024-06-12] MEDS ORDERED: magnesium sulf-water 4G/100mL 100 ML IV PRN (17:55)
[2024-06-12] MEDS ORDERED: ondansetron/PF 4mg/2ml inj IV PRN (17:55)
[2024-06-12] MEDS ORDERED: magnesium sulf-water 2g/50mL 50 ML IV PRN (17:55)
[2024-06-12] MEDS ORDERED: magnesium Cl slow-release 64mg tablet PO PRN (17:55)
[2024-06-12] MEDS ORDERED: potassium Cl 40MEQ/1/2NS 520ml 520 ML IV PRN (17:55)
[2024-06-12] MEDS: CefTRIAXone 2gm/D5W 50ml BAG 50 ML IV ONE (20:48)
[2024-06-12] MEDS: lisinopril 10 MG tablet PO SCH (22:00)
[2024-06-12] MEDS: EMPAGLIFLOZIN 10 MG TABLET PO SCH (22:03)
[2024-06-12] MEDS: acetaminophen 325mg tablet PO PRN (22:03)
[2024-06-12] MEDS: furosemide 40mg/4ml inj IV SCH (22:04)
[2024-06-12] MEDS: heparin, porcine 5000 units/ml vial SQ SCH (22:05)
[2024-06-12 23:54] VITALS: RESP 23; O2SAT 95
[2024-06-13] VITALS (11 sets, daily range): BP systolic 117–156; BP diastolic 69–101; PULSE 74–98; RESP 15–26; TEMP 97.1–98.6; O2SAT 90–100
[2024-06-13] MEDS ORDERED: Melatonin 3mg tablet PO SCH (00:10)
[2024-06-13] MEDS: potassium Cl 20 mEq SR tablet PO PRN ×2 (01:11→08:23)
[2024-06-13] MEDS: Melatonin 3mg tablet ONE (01:15)
[2024-06-13] MEDS ORDERED: FURO40TA4 PO (01:22)
[2024-06-13] MEDS ORDERED: MELA1TAB28 PO (01:24)
[2024-06-13 05:40] LABS: BASOPHILS % (AUTO) 0.5 % (0-1); EOSINOPHILS # (AUTO) 0.1 X10'3 (0-0.9); EOSINOPHILS % (AUTO) 1.7 % (0-6); HEMATOCRIT 45.8 % (35.0-45.0); HEMOGLOBIN 14.9 g/dl (12.0-16.0); LYMPHOCYTES # (AUTO) 2.1 X10'3 (1.1-4.8); MEAN CORPUSCULAR HEMOGLOBIN 32.2 PG (27.0-31.0); MEAN CORPUSCULAR HGB CONC 32.4 g/dL (33.0-36.5); MEAN CORPUSCULAR VOLUME 99.2 FL (78-98); MEAN PLATELET VOLUME 8.9 FL (7.4-10.4); MONOCYTES # (AUTO) 0.6 X10'3 (0-0.9); MONOCYTES % (AUTO) 9.5 % (2-12); NEUTROPHILS # (AUTO) 3.5 X10'3 (1.8-7.7); NEUTROPHILS % (AUTO) 55.3 % (42-75); PLATELET COUNT 107 X10'3 (140-440); RED BLOOD COUNT 4.62 X10'6 (4.20-5.60); RED CELL DISTRIBUTION WIDTH 18.1 % (11.5-14.5); WHITE BLOOD COUNT 6.4 X10'3 (4.5-11.0)
[2024-06-13 05:50] LABS: ALANINE AMINOTRANSFERASE 52 U/L (12-78); ALBUMIN 2.5 G/DL (3.4-5.0); ALBUMIN/GLOBULIN RATIO 0.6 (1.1-1.5); ALKALINE PHOSPHATASE 268 IU/L (46-116); ANION GAP 9 (8-16); ASPARTATE AMINO TRANSFERASE 64 U/L (10-37); BILIRUBIN,TOTAL 2.2 MG/DL (0.1-1.0); BLOOD UREA NITROGEN 15 MG/DL (7-18); BUN/CREATININE RATIO 12.8 (10.0-20.0); CALCIUM 8.8 MG/DL (8.5-10.1); CHLORIDE 106 MMOL/L (99-107); CHOL/HDL RATIO 4.7 (0.00-4.99); CHOLESTEROL 85 MG/DL (0-200); CREATININE 1.17 MG/DL (0.40-0.90); GLUCOSE 107 MG/DL (70-104); HDL CHOLESTEROL 18 MG/DL (35-60); LDL CHOLESTEROL 62 MG/DL (50-100); POTASSIUM 3.4 MMOL/L (3.5-5.1); SODIUM 143 MMOL/L (135-145); TOTAL CARBON DIOXIDE 28.1 MMOL/L (24-32); TOTAL PROTEIN 6.4 G/DL (6.4-8.2); TRIGLYCERIDES 76 MG/DL (20-135); eCRCL 52 ML/MIN; eGFR 51 ML/MIN
[2024-06-13 07:06] LABS: HEMOGLOBIN A1C 6.1 % (4.5-6.2)
[2024-06-13] MEDS: metoprolol succinate 25mg (24-HOUR) SR. Tablet PO SCH (08:22)
[2024-06-13] MEDS: aspirin 81mg, enteric-coated 1 TAB TABLET.DR PO SCH (08:22)
[2024-06-13] MEDS: atorvastatin 20mg tablet PO SCH (08:23)
[2024-06-13] MEDS: nystatin 15 GM powder TP SCH (08:28)
[2024-06-13] MEDS ORDERED: spironolactone 25 MG tablet PO SCH (08:30)
[2024-06-13] MEDS: albuterol 2.5 MG/3 ML nebule NEB PRN (20:25)
[2024-06-13] MEDS: CefTRIAXone/D5W-Rocephin 1gm 50 ML IV SCH (21:08)
[2024-06-13] MEDS ORDERED: magnesium Cl slow-release 64mg tablet PO PRN (21:10)
[2024-06-14 02:00] VITALS: BP 121/85; PULSE 71; RESP 20; TEMP 98.5; O2SAT 98
[2024-06-14 06:00] VITALS: BP 144/108; PULSE 71; RESP 16; TEMP 97.6; O2SAT 97
[2024-06-14 06:30] LABS: BASOPHILS % (AUTO) 0.6 % (0-1); EOSINOPHILS # (AUTO) 0.1 X10'3 (0-0.9); EOSINOPHILS % (AUTO) 1.8 % (0-6); HEMATOCRIT 46.6 % (35.0-45.0); HEMOGLOBIN 15.1 g/dl (12.0-16.0); LYMPHOCYTES # (AUTO) 2.3 X10'3 (1.1-4.8); LYMPHOCYTES % (AUTO) 37.1 % (21-51); MEAN CORPUSCULAR HEMOGLOBIN 32.2 PG (27.0-31.0); MEAN CORPUSCULAR HGB CONC 32.3 g/dL (33.0-36.5); MEAN CORPUSCULAR VOLUME 99.6 FL (78-98); MONOCYTES # (AUTO) 0.6 X10'3 (0-0.9); NEUTROPHILS # (AUTO) 3.2 X10'3 (1.8-7.7); NEUTROPHILS % (AUTO) 51.5 % (42-75); PLATELET COUNT 120 X10'3 (140-440); RED BLOOD COUNT 4.68 X10'6 (4.20-5.60); RED CELL DISTRIBUTION WIDTH 17.4 % (11.5-14.5); WHITE BLOOD COUNT 6.2 X10'3 (4.5-11.0)
[2024-06-14 06:46] LABS: ALANINE AMINOTRANSFERASE 60 U/L (12-78); ALBUMIN 2.5 G/DL (3.4-5.0); ALBUMIN/GLOBULIN RATIO 0.6 (1.1-1.5); ALKALINE PHOSPHATASE 266 IU/L (46-116); ANION GAP 8 (8-16); ASPARTATE AMINO TRANSFERASE 73 U/L (10-37); BILIRUBIN,TOTAL 2.2 MG/DL (0.1-1.0); BLOOD UREA NITROGEN 21 MG/DL (7-18); BUN/CREATININE RATIO 17.5 (10.0-20.0); CALCIUM 9.1 MG/DL (8.5-10.1); CHLORIDE 103 MMOL/L (99-107); GLUCOSE 86 MG/DL (70-104); POTASSIUM 4.1 MMOL/L (3.5-5.1); SODIUM 140 MMOL/L (135-145); TOTAL CARBON DIOXIDE 29.2 MMOL/L (24-32); TOTAL PROTEIN 6.5 G/DL (6.4-8.2); eCRCL 51 ML/MIN; eGFR 50 ML/MIN
[2024-06-14 08:00] VITALS: RESP 16; O2SAT 97
[2024-06-14 08:10] VITALS: PULSE 76; RESP 22; O2SAT 92
[2024-06-14] MEDS: spironolactone 25 MG tablet PO SCH (08:11)
[2024-06-14] MEDS ORDERED: SPIR25TA PO (10:57)
[2024-06-14] MEDS ORDERED: LISI10TA27 PO (10:57)
[2024-06-14] MEDS ORDERED: FURO40TA4 PO (10:57)
[2024-06-14 11:00] VITALS: BP 121/86; PULSE 73; RESP 18; TEMP 97.6; O2SAT 93
== END 2024-06-14 12:45 | disposition home or self-care (01) | DRG 194 ==
LOC: ER 13:07 → ED HOLD 17:59 → EDBEDREQ 20:25 → PCU 3S 23:18
PROVIDERS: ADMIT Internal Medicine; ATTEND Internal Medicine
DX: I11.0 Hypertensive heart disease with heart failure (principal); I21.A1 Myocardial infarction type 2; I95.9 Hypotension, unspecified; K76.1 Chronic passive congestion of liver; I27.21 Secondary pulmonary arterial hypertension; D75.89 Other specified diseases of blood and blood-forming organs; E87.6 Hypokalemia; I50.33 Acute on chronic diastolic (congestive) heart failure; N39.0 Urinary tract infection, site not specified; F10.10 Alcohol abuse, uncomplicated; G47.33 Obstructive sleep apnea (adult) (pediatric); F15.10 Other stimulant abuse, uncomplicated; G43.909 Migraine, unspecified, not intractable, without status migrainosus; I25.10 Atherosclerotic heart disease of native coronary artery without angina pectoris; Z98.891 History of uterine scar from previous surgery; Z79.82 Long term (current) use of aspirin; Z88.0 Allergy status to penicillin; Z79.899 Other long term (current) drug therapy; Z88.8 Allergy status to other drugs, medicaments and biological substances; Z91.148 Patient's other noncompliance with medication regimen for other reason; Z59.00 Homelessness unspecified; I25.2 Old myocardial infarction
CPT/HCPCS: 36415; 71045; 80053; 80061; 80305; 81001; 83036; 83735; 83880; 84145; 84439; 84443; 84484; 84702; 84703; 85008; 85025; 85610; 85730; 87040; 87081; 87088; 93005; 93306; 94640; 94760; 99285; G0378; J0696; J1644; J1940; J3480; J7040

== ENCOUNTER 2024-09-06 02:13 | Emergency (ER) | payer MEDICAID ==
[~2024-09-06] VITALS: Ht 160 cm; Wt 108.1 kg
[~2024-09-06 02:13] MED LIST changes: -ACET-2119 PO; -DIVA125T9 PO; +FURO40TA4 PO; -GABA-338 PO; +LISI10TA27 PO; +MELA1TAB28 PO; -MULT-25 PO; -NOR5T PO
[2024-09-06 02:57] LABS: BASOPHILS # (AUTO) 0.1 X10'3 (0-0.2); BASOPHILS % (AUTO) 1.4 % (0-1); EOSINOPHILS # (AUTO) 0.1 X10'3 (0-0.9); EOSINOPHILS % (AUTO) 1.1 % (0-6); HEMATOCRIT 41.9 % (35.0-45.0); HEMOGLOBIN 14.1 g/dl (12.0-16.0); LYMPHOCYTES # (AUTO) 1.7 X10'3 (1.1-4.8); LYMPHOCYTES % (AUTO) 23.5 % (21-51); MEAN CORPUSCULAR HEMOGLOBIN 32.8 PG (27.0-31.0); MEAN CORPUSCULAR HGB CONC 33.6 g/dL (33.0-36.5); MEAN CORPUSCULAR VOLUME 97.5 FL (78-98); MEAN PLATELET VOLUME 8.5 FL (7.4-10.4); MONOCYTES # (AUTO) 0.6 X10'3 (0-0.9); MONOCYTES % (AUTO) 7.6 % (2-12); NEUTROPHILS # (AUTO) 4.8 X10'3 (1.8-7.7); NEUTROPHILS % (AUTO) 66.4 % (42-75); PLATELET COUNT 167 X10'3 (140-440); RED BLOOD COUNT 4.29 X10'6 (4.20-5.60); WHITE BLOOD COUNT 7.3 X10'3 (4.5-11.0)
[2024-09-06 03:12] LABS: ALANINE AMINOTRANSFERASE 58 U/L (12-78); ALBUMIN 2.6 G/DL (3.4-5.0); ALKALINE PHOSPHATASE 328 IU/L (46-116); ANION GAP 9 (8-16); BILIRUBIN,TOTAL 4.4 MG/DL (0.1-1.0); BLOOD UREA NITROGEN 21 MG/DL (7-18); BUN/CREATININE RATIO 17.4 (10.0-20.0); CALCIUM 8.9 MG/DL (8.5-10.1); CHLORIDE 103 MMOL/L (99-107); CREATININE 1.21 MG/DL (0.40-0.90); GLUCOSE 101 MG/DL (70-104); SODIUM 141 MMOL/L (135-145); TOTAL CARBON DIOXIDE 29.1 MMOL/L (24-32); eCRCL 51 ML/MIN; eGFR 49 ML/MIN
[2024-09-06 03:21] LABS: PRO BRAIN NATRIURETIC PEPTIDE 1882 PG/ML (0-125)
[2024-09-06 03:25] LABS: ALBUMIN/GLOBULIN RATIO 0.5 (1.1-1.5); ASPARTATE AMINO TRANSFERASE 66 U/L (10-37); POTASSIUM 4.3 MMOL/L (3.5-5.1); TOTAL PROTEIN 7.8 G/DL (6.4-8.2)
[2024-09-06 08:46] VITALS: BP 135/74; PULSE 116; RESP 17; TEMP 98.2; O2SAT 93
== END 2024-09-06 10:40 | disposition left against medical advice (07) ==
LOC: ER 02:14
DX: R06.89 Other abnormalities of breathing (principal); G43.909 Migraine, unspecified, not intractable, without status migrainosus; I50.9 Heart failure, unspecified; F15.90 Other stimulant use, unspecified, uncomplicated; Z88.0 Allergy status to penicillin; Z88.6 Allergy status to analgesic agent; Z88.8 Allergy status to other drugs, medicaments and biological substances; Z98.890 Other specified postprocedural states; Z79.82 Long term (current) use of aspirin
CPT/HCPCS: 36415; 71045; 80053; 83880; 84484; 85025; 93005; 99285